=== PATIENT | male | born 1970 | race Caucasian/White ===

== ENCOUNTER 2023-09-04 10:39 | Emergency (ER) | payer BC ==
[2023-09-04 10:47] VITALS: RESP 18; TEMP 98.1
--- NOTE | 2023-09-04 11:03 | ED ---
Neck Injury/Pain HPI - General Chief Complaint: Neck Pain/Injury Stated Complaint: Neck pain, spasms Time Seen by Provider: 09/04/23 10:52 Source: patient, RN notes reviewed Mode of arrival: ambulatory Limitations: no limitations - History of Present Illness Initial Comments: This is a 52 year old male with a past medical history of degenerative disc dis ease of the cervical spine who presents to the ER chief complaint of worsening neck pain over the past 2 months. Patient states that his right shoulder is okay with that however pain with extension. Neck. Endorses radiation of pain from the cervical spine. The mid and distal humerus of the left arm. Patient denies paresthesias or loss of motor function lower extremities. He has been following with a chiropractor, pet trainer and physical therapist with no relief of symptoms. Patient had an MRI completed of his cervical spine for 15 years, history of degenerative disc disease. Denies history of trauma to the neck or surgeries. He has been taking ibuprofen at home with minimal relief. - Related Data Home Medications Medication Instructions Recorded Confirmed Atorvastatin [Lipitor] 20 mg PO DAILY 09/04/23 09/04/23 Previous Rx's Medication Instructions Recorded Cyclobenzaprine [Flexeril] 10 mg PO TID PRN #15 tab 09/04/23 Ketorolac [Toradol] 10 mg PO Q8HR #15 tab 09/04/23 Allergies Allergy/AdvReac Type Severity Reaction Status Date / Time Penicillins Allergy Rash/Hives Verified 09/04/23 12:18 Review of Systems ROS Statement: Those systems with pertinent positive or pertinent negative responses have been documented in the HPI. ROS Other: All systems not noted in ROS Statement are negative. Past Medical History Past Medical History: Hyperlipidemia History of Any Multi-Drug Resistant Organisms: None Reported Past Surgical History: Orthopedic Surgery Past Psychological History: No Psychological Hx Reported Smoking Status: Never smoker Past Alcohol Use History: Daily Past Drug Use History: None Reported General Exam Limitations: no limitations General appearance: alert, in no apparent distress Head exam: Present: atraumatic, normocephalic, normal inspection Eye exam: Present: normal appearance, PERRL, EOMI. Absent: scleral icterus, conjunctival injection, periorbital swelling ENT exam: Present: normal exam, mucous membranes moist Neck exam: Present: tenderness (posterior), other (pain with extension, no noted overlying skin deficits). Absent: lymphadenopathy, thyromegaly Respiratory exam: Present: normal lung sounds bilaterally. Absent: respiratory distress, wheezes, rales, rhonchi, stridor Cardiovascular Exam: Present: regular rate, normal rhythm, normal heart sounds. Absent: systolic murmur, diastolic murmur, rubs, gallop, clicks GI/Abdominal exam: Present: soft, normal bowel sounds. Absent: distended, tenderness, guarding, rebound, rigid Extremities exam: Present: normal inspection, full ROM, normal capillary refill. Absent: tenderness, pedal edema, joint swelling, calf tenderness Back exam: Present: tenderness (posterior cervical), paraspinal tenderness Neurological exam: Present: alert, oriented X3, CN II-XII intact Course Vital Signs 09/04/23 09/04/23 10:45 12:19 Temperature 98.1 F 98.1 F Pulse Rate 83 86 Respiratory 18 18 Rate Blood Pressure 130/89 149/88 O2 Sat by Pulse 96 99 Oximetry Medical Decision Making - Medical Decision Making Was pt. sent in by a medical professional or institution (Dr. PA, [employer], urgent care, hospital, or [place] [facility] facility...) When possible be specific @ -No Did you speak to anyone other than the patient for history (EMS, parent, family, police, friend...)? What history was obtained from this source @ -No Did you review nursing and triage notes (agree or disagree)? Why? @ -I reviewed and agree with nursing and triage notes Were old charts reviewed (outside hosp., previous admission, EMS record, old EKG, old radiological studies, urgent care reports/EKG's, [place] [facility] facility records)? Report findings @ -No old charts were reviewed Differential Diagnosis (chest pain, altered mental status, abdominal pain women, abdominal pain men, vaginal bleeding, weakness, fever, dyspnea, syncope, headache, dizziness, GI bleed, back pain, seizure, CVA, palpatations, mental health, musculoskeletal)? @ -Differential Musculoskeletal Muscular strain, contusion, ligament sprain, fracture, arthritis, septic a rthritis, bursitis, cellulitis, muscle spasm, nerve compression, DVT, arterial occlusion, herpes zoster, electrolyte abnormality, tumor.... This is not meant to be in all inclusive list EKG interpreted by me (3pts min.). @ -None X-rays interpreted by me (1pt min.). @ -None done CT interpreted by me (1pt min.). @ -CT of the cervical spine without contrast no evidence for cervical spine fr acture, mild multilevel degenerative disc disease and uncovertebral joint hypertrophy. U/S interpreted by me (1pt. min.). @ -None done What testing was considered but not performed or refused? (CT, X-rays, U/S, labs)? Why? @ -None What meds were considered but not given or refused? Why? @ -None Did you discuss the management of the patient with other professionals (professionals i.e. , PA, [employer], lab, RT, psych nurse, social security benefits interviewer, foreign service teacher, teacher, electoral officer, casework specialist)? Give summary @ -No Was smoking cessation discussed for >3mins.? @ -No Was critical care preformed (if so, how long)? @ -No Were there social determinants of health that impacted care today? How? (Homelessness, low income, unemployed, alcoholism, drug addiction, transportation, low edu. Level, literacy, decrease access to med. care, nursing home, rehab)? @ -No Was there de-escalation of care discussed even if they declined (Discuss DNR or withdrawal of care, Hospice)? DNR status @ -No What co-morbidities impacted this encounter? (DM, HTN, Smoking, COPD, CAD, Cancer, CVA, ARF, Chemo, Hep., AIDS, mental health diagnosis, sleep apnea, morbid obesity)? @ -None Was patient admitted / discharged? Hospital course, mention meds given and route, prescriptions, significant lab abnormalities, going to OR and other pertinent info. @ -Discharge. 52-year-old male with neck pain. On examination patient has pain with active extension of the neck. Range of motion intact. There are no acute neurological deficits 2+ to the upper extremities. Neuroexam no acute patient will be symptomatically treated with muscle relaxer and the neck for further evaluation. Patient did agree with this plan. CT imaging no acute process identified. Patient provided with a dose of pain medication emergency department. Recommend the patient follow-up with fitness specialist for further evaluation. Will be sent a prescription for Flexeril and Toradol to take as needed for pain relief. All questions answered at bedside and strict return parameters discussed mucopus understanding. Case discussed with Dr. Pack. Undiagnosed new problem with uncertain prognosis? @ -No Drug Therapy requiring intensive monitoring for toxicity (Heparin, Nitro, Insulin, Cardizem)? @ -No Were any procedures done? @ -No Diagnosis/symptom? @ -Degenerative disc disease of cervical spine, neck pain Acute, or Chronic, or Acute on Chronic? @ -Acute Uncomplicated (without systemic symptoms) or Complicated (systemic symptoms)? @ -Uncomplicated Side effects of treatment? @ -No Exacerbation, Progression, or Severe Exacerbation? @ -No Poses a threat to life or bodily function? How? (Chest pain, [place], [place], pneumonia, PE, COPD, DKA, ARF, appy, cholecystitis, CVA, Diverticulitis, Homicidal, Suicidal, threat to staff... and all critical care pts) @ -No Disposition Clinical Impression: Degenerative disc disease, Neck pain, Muscle spasm Disposition: HOME SELF-CARE Condition: Good Instructions (If sedation given, give patient instructions): Cervical Strain (ED), Degenerative Disc Disease (ED) Additional Instructions: Return to the emergency department if symptoms worsen or improve. Recommend follow-up with provided fitness specialist for further evaluation. Take prescribed medication for pain relief. Prescriptions: Cyclobenzaprine [Flexeril] 10 mg PO TID PRN #15 tab PRN Reason: Muscle Spasm Ketorolac [Toradol] 10 mg PO Q8HR #15 tab Is patient prescribed a controlled substance at d/c from ED?: No Referrals: Paula Kearney DO [Primary Care Provider] - 1-2 days Luther Byrd DO [Doctor of Osteopathic Medicine] - 1-2 days Time of Disposition: 12:10
[2023-09-04] MEDS: ORPHENADRINE 30 MG/ML 2 ML VIAL IM STA (11:22)
--- NOTE | 2023-09-04 11:47 | CT ---
EXAMINATION TYPE: CT cervical spine wo con CT DLP: 467.6 mGycm, Automated exposure control for dose reduction was used. DATE OF EXAM: 09/04/2023 11:38 AM COMPARISON: None. CLINICAL INDICATION:Male, 52 years old with history of pain/muscle spasm; PHH, severe neck pain near C7 with muscle spasm down left arm TECHNIQUE: Axial CT images from the skull base to the inferior aspect of T2 we obtained without intra venous contrast. Coronal and sagittal reformatted images were also reviewed. FINDINGS: Fracture: None. Osseous structures: Unremarkable Vertebral alignment: No spondylolisthesis. Reversal of normal cervical lordosis. Spinal canal/Neural Foramina: Posterior disc osteophyte complex at C4-C5, C5-C6, C6-C7 without signif icant central canal stenosis. Uncovertebral joint hypertrophy at C4-C5 resulting in mild right neural foraminal stenosis. Moderate bilateral neural foraminal stenosis secondary to facet arthropathy and uncovertebral joint hypertrophy at C5-C6. Mild bilateral neuroforaminal stenosis at C6-C7 secondary t o uncovertebral joint hypertrophy. Neck soft tissues: Prevertebral soft tissues are within normal limits. Other: The airway is patent. The lung apices are clear. Polyp versus mucus retention cyst within the inferior right maxillary sinus measuring up to 2.3 cm. Minimal mucosal thickening of the left maxilla ry sinus and ethmoid sinuses. IMPRESSION: 1. No evidence of cervical spine fracture. 2. Mild multilevel degenerative disc disease and uncovertebral joint hypertrophy as described above.
[2023-09-04] MEDS: HYDROmorphone 1 MG/ML 1 ML SYRINGE IM STA (12:17)
[2023-09-04 12:22] VITALS: BP 149/88; PULSE 86
== END 2023-09-04 12:20 | disposition home or self-care (01) ==
LOC: EC 10:39
DX: M50.30 Other cervical disc degeneration, unspecified cervical region (principal); M62.838 Other muscle spasm; Z88.0 Allergy status to penicillin
CPT/HCPCS: 72125; 99284; 96372 ×2; J2360; J1170